=== PATIENT | male | born 1935 ===

== ENCOUNTER 2017-10-05 15:56 | Inpatient (IN) | payer MEDICARE ==
[~2017-10-05] VITALS: Ht 170.2 cm; Wt 79.4 kg
[2017-10-05 16:15] VITALS: BP 148/82
[2017-10-05] MEDS ORDERED: ONDA4SOL2 PO (16:58)
[2017-10-05] MEDS ORDERED: ENOX40DI SQ (16:58)
[2017-10-05] MEDS ORDERED: ACET-2154 PO (16:58)
[2017-10-05] MEDS ORDERED: ATOR80TA PO (16:58)
[2017-10-05] MEDS ORDERED: CLOP75TA15 PO (16:58)
[2017-10-05] MEDS ORDERED: DEXTROSE 50% 50 ML DISP.SYRIN IV PRN (17:00)
[2017-10-05] MEDS ORDERED: FINA5TAB11 PO (17:27)
[2017-10-05] MEDS ORDERED: MULT-24 (17:27)
[2017-10-05] MEDS ORDERED: MEMA10TA PO (17:27)
[2017-10-05] MEDS ORDERED: SITA1TAB6 PO (17:27)
[2017-10-05] MEDS ORDERED: ONDANSETRON HCL 4 MG/5 ML UDC ORAL SOL PO PRN (18:00)
[2017-10-05] MEDS ORDERED: ONDANSETRON HCL 4 MG TABLET PO PRN (18:00)
[2017-10-05] MEDS ORDERED: ACETAMINOPHEN 325 MG TABLET PO PRN (18:00)
--- NOTE | 2017-10-05 18:13 | NUR ---
pt admitted from [facility]. pt admitted at 1530. pt bp elevated. pt tolerates room air. pt afebrile. all belongings signed. NIH stroke scale done. pt all pertinent assessments done. pt is alert and oriented. pt shows signs of dementia. pt has history of right side weaknes hyperlipidemia TIA and lactic acidosis. pt family will bring in home meds tomorrow. will continue to monitor. Addendum: 10/05/17 at 1825 by LAMONTE LEDESMA RN no new injuries noted. pt vitals RR 20 Temp 98.2 )2 98% room air Bp 148/82 no pain noted. pt seen by md galeas and dr german.
[2017-10-05 20:00] VITALS: BP 142/71
--- NOTE | 2017-10-05 20:30 | NUR ---
Received pt on bed alert and awake. Family member at bedside during this time. No acute distress noted. No complaints of pain or discomfort. Breathing even and unlabored with normal respirations. All due meds given as ordered and well tolerated. Ambulates to the bathroom with walker and standby assistance. Encouraged to verbalize needs and concerns. Call light within reach. All needs attended. Will continue to monitor.
[2017-10-05] MEDS: MEMANTINE HCL 10 MG TABLET PO SCH (20:49)
[2017-10-05] MEDS: ATORVASTATIN 40 MG TABLET PO SCH (20:49)
--- NOTE | 2017-10-06 05:23 | NUR ---
Pt seen on rounding, slept comfortably throughout the night. No acute distress noted. No complaints of pain or discomfort. Assisted to the bathroom as needed. Call light within reach. All needs attended.
[2017-10-06 07:25] LABS: BASOPHILS % (AUTO) 0.6 % (0.0-2.0); EOSINOPHILS # (AUTO) 0.3 K/uL (0.0-0.7); EOSINOPHILS % (AUTO) 4.7 % (0.0-7.0); HEMATOCRIT 47.8 % (36.7-47.1); HEMOGLOBIN 16.6 g/dL (12.5-16.3); LYMPHOCYTES # (AUTO) 1.6 K/uL (20.0-40.0); LYMPHOCYTES % (AUTO) 25.2 % (20.5-51.5); MEAN CORPUSCULAR HEMOGLOBIN 32.7 uug (23.8-33.4); MEAN CORPUSCULAR HGB CONC 35 g/dL (32.5-36.3); MEAN CORPUSCULAR VOLUME 94.4 fL (73.0-96.2); MONOCYTES # (AUTO) 0.7 K/uL (2.0-10.0); MONOCYTES % (AUTO) 11.2 % (0.0-11.0); NEUTROPHILS # (AUTO) 3.6 K/uL (1.8-8.9); NEUTROPHILS % (AUTO) 58.3 % (38.5-71.5); PLATELET COUNT (AUTO) 231 K/uL (152-348); RED BLOOD CELL COUNT(AUTO) 5.07 MIL/uL (4.06-5.63); WHITE BLOOD COUNT (AUTO) 6.2 K/uL (3.6-10.2)
[2017-10-06 07:39] LABS: CARBON DIOXIDE 29 mmol/L (21-32); CHLORIDE 106 mmol/L (98-107); CHOLESTEROL 145 mg/dL (<200); CREATININE 1.1 mg/dL (0.6-1.3); GLUCOSE 101 mg/dL (74-106); HDL CHOLESTEROL 41 mg/dL (40-60); MAGNESIUM 2.1 mg/dL (1.8-2.4); PHOSPHOROUS 3.6 mg/dL (2.5-4.9); POTASSIUM 3.7 mmol/L (3.5-5.1); TRIGLYCERIDES 73 MG/DL (30-150); UREA NITROGEN, BLOOD 15 mg/dL (7-18)
[2017-10-06 07:55] VITALS: BP 133/64
[2017-10-06] MEDS: CLOPIDOGREL 75 MG TABLET PO SCH (09:39)
[2017-10-06] MEDS: MULTIVITAMINS,THERAPEUTIC TABLET PO SCH (09:39)
[2017-10-06] MEDS: FINASTERIDE 5 MG TABLET PO SCH (09:44)
[2017-10-06] MEDS: MEMANTINE HCL 10 MG TABLET PO SCH ×2 (09:44→21:20)
[2017-10-06] MEDS: ENOXAPARIN SODIUM 30 MG/0.3 ML DISP.SYRIN SUBCUT SCH (10:18)
--- NOTE | 2017-10-06 11:03 | NUR ---
SBAR report received near bedside, board updated. Pt awake, alert, oriented. Pt assessed, no c/o pain, no SOB, and no discomfort to be noted. Pt compliant with all routine morning medication administration, and reports tolerating well active participation with OT earlier this morning. All safety and comfort measures met. Personal items and call light within reach. Will continue to monitor and follow up about supply of at home medication.
--- NOTE | 2017-10-06 11:32 | NUR ---
Admitting RN contacted for Accu-check confirmation of AC HS, eMAR corrected to reflect this, blood sugars checked prior to lunch, 155 mg/dL result, 2 units of insulin administered per sliding scale protocol.
[2017-10-06] MEDS: INSULIN REGULAR, HUMAN 300 UNIT/3 ML VIAL SQ PRN ×3 (11:54→21:31)
--- NOTE | 2017-10-06 12:36 | NUR ---
Life partner, Latasha visiting at bedside for lunch and provided at home medication requested. Medication brought to pharmacy.
[2017-10-06] MEDS: BLOOD SUGAR DIAGNOSTIC 1 EACH STRIP VI SCH ×3 (13:00→21:21)
[2017-10-06] MEDS ORDERED: BLOOD SUGAR DIAGNOSTIC 1 EACH STRIP VI SCH (16:30)
[2017-10-06] MEDS: JANUMET PO SCH (17:01)
--- NOTE | 2017-10-06 19:03 | NUR ---
Pt sitting comfortably, semi-fowlers position in bed. No c/o pain, or discomfort, BS prior to dinner 153, 2 units insulin administered per sliding scale. Call light placed within reach. All needs addressed. Will endorse to oncoming overnight cashier.
--- NOTE | 2017-10-06 20:45 | NUR ---
Received patient in bed, on semi us's position, awake and verbally responsive. Patient watching TV, breathing is even and nonlabored. Vital signs taken, BP 104/62, T 97.7, P 98, R 18, O2 sat on 99% RA. Patient expressed his excitement to go home tomorrow. Per patient " I can't wait to go back home." Safety measures provided. Call light in reach. Will monitor the pt.
[2017-10-06] MEDS: ATORVASTATIN 40 MG TABLET PO SCH (21:20)
[2017-10-06 21:48] VITALS: BP 104/62
--- NOTE | 2017-10-07 06:20 | NUR ---
Pt. slept throughout the shift. No signs of any acute respi. distress. No s/s of stroke, vital signs stable. All due meds. given. Safety measures provided. All needs attended to. Call light in reach. Will endorse to AM shift nurse.
[2017-10-07] MEDS: BLOOD SUGAR DIAGNOSTIC 1 EACH STRIP VI SCH ×4 (06:54→21:03)
--- NOTE | 2017-10-07 06:59 | NUR ---
accu check done, blood sugar 97mg/dL. No action needed. will endorse to AM shift.
[2017-10-07] MEDS: JANUMET PO SCH ×2 (08:00→17:25)
[2017-10-07] MEDS: MULTIVITAMINS,THERAPEUTIC TABLET PO SCH (08:42)
[2017-10-07] MEDS: MEMANTINE HCL 10 MG TABLET PO SCH ×2 (08:42→20:55)
[2017-10-07] MEDS: CLOPIDOGREL 75 MG TABLET PO SCH (08:42)
[2017-10-07] MEDS: FINASTERIDE 5 MG TABLET PO SCH (08:42)
[2017-10-07] MEDS: ENOXAPARIN SODIUM 30 MG/0.3 ML DISP.SYRIN SUBCUT SCH (08:44)
[2017-10-07] MEDS: INSULIN REGULAR, HUMAN 300 UNIT/3 ML VIAL SQ PRN (14:48)
--- NOTE | 2017-10-07 19:30 | NUR ---
Patient in bathroom at this time. Alert and verbally responsive. Able to make needs known. Denies any pain and discomfort at this time. No acute distress. No SOB. Kept clean and dry. Ambulates to the bathroom. Verbalized to call for help when needed. Verbalizes understanding. All needs attended to promptly. Call light within reach. Will continue to monitor.
[2017-10-07 20:00] VITALS: BP 132/81
[2017-10-07] MEDS: ATORVASTATIN 40 MG TABLET PO SCH (20:55)
[2017-10-08] MEDS: BLOOD SUGAR DIAGNOSTIC 1 EACH STRIP VI SCH ×4 (06:43→20:46)
--- NOTE | 2017-10-08 07:04 | NUR ---
Patient slept comfortably throughout tonight. No c/o pain and discomfort. No acute distress. No SOB. Assisted to the bathroom. Patient noted to be slightly confused due to hx of dementia. Patient mentioned multiple times that he wanted to go home today. Patient also verbalized to me that he had a doctors appointment today and that he got a room here so he can go up see the dr. Re-oriented patient and explained to him the reason why he was here. Accucheck taken this AM with BS of 103. No insulin needed. Endorsed to AM shift. All needs attended to promptly. Call light within reach. Will continue to monitor.
--- NOTE | 2017-10-08 07:30 | NUR ---
Patient is in bed, awake and alert, verbally responsive not in distress and not in pain. Vitals are stable, kept comfortable, no signs and symptoms of hypoglycemia or hyperglycemia. Patient provided limited assistance with bed mobility, toileting and transfers. Needs attended promptly, patient is voiding independently using his urinal within normal limits.
[2017-10-08] MEDS: ENOXAPARIN SODIUM 30 MG/0.3 ML DISP.SYRIN SUBCUT SCH (09:39)
[2017-10-08] MEDS: JANUMET PO SCH ×2 (09:40→17:07)
[2017-10-08] MEDS: CLOPIDOGREL 75 MG TABLET PO SCH (09:42)
[2017-10-08] MEDS: MULTIVITAMINS,THERAPEUTIC TABLET PO SCH (09:42)
[2017-10-08] MEDS: FINASTERIDE 5 MG TABLET PO SCH (09:42)
[2017-10-08] MEDS: MEMANTINE HCL 10 MG TABLET PO SCH ×2 (09:43→20:47)
[2017-10-08 09:44] VITALS: BP 122/82
[2017-10-08] MEDS: INSULIN REGULAR, HUMAN 300 UNIT/3 ML VIAL SQ PRN ×3 (12:02→20:50)
--- NOTE | 2017-10-08 18:00 | NUR ---
Patient up in a chair, awake and alert, verbally responsive, denies pain, and not in acute distress. Accucheck done, no signs and symptoms of hypoglycemia or hyperglycemia at this time, no signs and symptoms of bleeding noted, handled gently. Needs attended promptly. All due medications given kept comforable clean and dry. Call light in easy reach
--- NOTE | 2017-10-08 19:30 | NUR ---
Received patient sitting up in wheelchair. at bedside. Patient alert and verbally responsive. Able to make needs known. Denies any pain and discomfort at this time. No acute distress. No SOB. Kept clean and dry. All needs attended to promptly. Call light within reach. Will continue to monitor.
[2017-10-08 20:00] VITALS: BP 109/74
[2017-10-08] MEDS: ATORVASTATIN 40 MG TABLET PO SCH (20:47)
[2017-10-09] MEDS: BLOOD SUGAR DIAGNOSTIC 1 EACH STRIP VI SCH ×4 (06:35→20:26)
--- NOTE | 2017-10-09 06:57 | NUR ---
Patient slept comfortably throughout the night. No c/o pain and discomfort. No acute distress. No SOB. Kept clean and dry. BS this am is 113. No coverage needed. Will endorse to AM shift. All needs attended to promptly. Call light within reach. Will continue to monitor.
[2017-10-09] MEDS: CLOPIDOGREL 75 MG TABLET PO SCH (09:22)
[2017-10-09] MEDS: MULTIVITAMINS,THERAPEUTIC TABLET PO SCH (09:22)
[2017-10-09] MEDS: JANUMET PO SCH ×2 (09:22→18:15)
[2017-10-09] MEDS: FINASTERIDE 5 MG TABLET PO SCH (09:23)
[2017-10-09] MEDS: MEMANTINE HCL 10 MG TABLET PO SCH ×2 (09:23→20:24)
[2017-10-09] MEDS: ENOXAPARIN SODIUM 30 MG/0.3 ML DISP.SYRIN SUBCUT SCH (09:36)
--- NOTE | 2017-10-09 10:15 | NUR ---
SBAR report received near bedside, board update. Pt awake, alert, and oriented x3, unable to describe event leading to hospitalization r/t Dementia. Pt assessed, no acute distress, pain or SOB. Helped with breakfast and to the bathroom, voiding x1. Pt compliant with all routine morning medication administration taking all po medications at once. V/S taken, 121/82, 90, 98.4 temp., 97% on RA, and 15 RR. All comfort and safety measures met. Will continue to monitor. Call light within reach.
[2017-10-09 10:25] VITALS: BP 121/82
[2017-10-09] MEDS: INSULIN REGULAR, HUMAN 300 UNIT/3 ML VIAL SQ PRN (12:14)
--- NOTE | 2017-10-09 18:23 | NUR ---
Pt reports having a poor appetite even towards snacks at this time. BS 130 prior to dinner, no coverage needed. Pt evaluated by OT for first shower, per family request following therapy. All safety and comfort measures met. Personal belongings and call light placed within reach. Will continue to monitor and endorse to oncoming second shift supervisor.
[2017-10-09 19:30] VITALS: BP 129/71
--- NOTE | 2017-10-09 19:30 | NUR ---
RECEIVED PATIENT FROM DAY SHIFT NURSE. SHIFT REPORT AT BEDSIDE. PATIENT SITTING COMFORTABLY IN BED AT START OF SHIFT WITH NO SIGNS OF PAIN, SOB, OR ACUTE DISTRESS. PT IS A/O X4 & ABLE TO MAKE NEEDS KNOWN. PERTINENT ASSESSMENT COMPLETED. CALL LIGHT PLACED WITHIN REACH OF PT. WILL CONTINUE TO MONITOR PT THROUGH SHIFT.
[2017-10-09] MEDS: ATORVASTATIN 40 MG TABLET PO SCH (20:24)
--- NOTE | 2017-10-10 05:38 | NUR ---
patient slept well through the shift. no signs of pain, sob, or acute distress. vital signs stable through shift. able to make needs known. all meds administered as ordered per md. safety measures implemented. bed in low position x2 side rails up. call light placed within reach of patient. encouraged patient to use call light when needing to use bathroom or ambulating. will endorse to day shift nurse.
[2017-10-10] MEDS: BLOOD SUGAR DIAGNOSTIC 1 EACH STRIP VI SCH ×4 (06:30→20:33)
--- NOTE | 2017-10-10 07:40 | NUR ---
Received patient asleep, non-labored breathing. Call light within reach.
--- NOTE | 2017-10-10 08:42 | NUR ---
I agree Addendum: 10/10/17 at 0842 by YRN SALCIDO OT Amended: Links added.
--- NOTE | 2017-10-10 08:44 | NUR ---
I agree Addendum: 10/10/17 at 0845 by YRN SALCIDO OT Amended: Links added.
--- NOTE | 2017-10-10 08:45 | NUR ---
I agree Addendum: 10/10/17 at 0846 by YRN SALCIDO OT Amended: Links added.
--- NOTE | 2017-10-10 09:00 | NUR ---
Morning care done, encouraged patient to eat more but said he was not hungry. Was able to finish cereals. Up with occupational therapy. Tolerating therapy well.
[2017-10-10] MEDS: JANUMET PO SCH ×2 (09:05→17:13)
[2017-10-10] MEDS: MULTIVITAMINS,THERAPEUTIC TABLET PO SCH (09:06)
[2017-10-10] MEDS: CLOPIDOGREL 75 MG TABLET PO SCH (09:06)
[2017-10-10] MEDS: MEMANTINE HCL 10 MG TABLET PO SCH ×2 (09:06→20:32)
[2017-10-10] MEDS: FINASTERIDE 5 MG TABLET PO SCH (09:06)
[2017-10-10] MEDS: ENOXAPARIN SODIUM 30 MG/0.3 ML DISP.SYRIN SUBCUT SCH (09:13)
[2017-10-10 11:46] VITALS: BP 104/59
--- NOTE | 2017-10-10 12:00 | NUR ---
WITH FAMILY AT BEDSIDE. NO COMPLAINTS OF DISCOMFORT. CALL LIGHT WITHIN REACH. ATTENDED TO NEEDS PROMPTLY.
[2017-10-10] MEDS: INSULIN REGULAR, HUMAN 300 UNIT/3 ML VIAL SQ PRN (12:06)
--- NOTE | 2017-10-10 14:15 | NUR ---
INTERDISCIPLINARY CONFERENCE MEETING
[2017-10-10 19:30] VITALS: BP 125/73
--- NOTE | 2017-10-10 19:30 | NUR ---
received patient from day shift nurse. shift report at bedside. pt a/o however forgetful. sitting on edge of bed comfortably at start of shift with no signs of pain, sob, or acute distress. vital signs stable at start of shift. pertinent assessment completed. bed in low position x2 side rails up. call light placed within reach of pt. encouraged pt to use call light if needing assistance. will continue to monitor pt through shift.
[2017-10-10] MEDS: ATORVASTATIN 40 MG TABLET PO SCH (20:33)
--- NOTE | 2017-10-11 05:38 | NUR ---
patient slept well through the shift. no signs of pain, sob, or acute distress. all needs attended to. all meds administered as ordered per md. vital signs stable through shift. safety measures implemented. call light placed within reach of patient. encouraged pt to use call light when needing to use the restroom. bed in low position x2 side rails up. will endorse to day shift nurse.
[2017-10-11] MEDS: BLOOD SUGAR DIAGNOSTIC 1 EACH STRIP VI SCH ×4 (06:35→20:52)
[2017-10-11] MEDS: JANUMET PO SCH ×2 (08:34→17:15)
[2017-10-11] MEDS: CLOPIDOGREL 75 MG TABLET PO SCH (08:35)
[2017-10-11] MEDS: MULTIVITAMINS,THERAPEUTIC TABLET PO SCH (08:35)
[2017-10-11] MEDS: MEMANTINE HCL 10 MG TABLET PO SCH ×2 (08:35→20:51)
[2017-10-11] MEDS: FINASTERIDE 5 MG TABLET PO SCH (08:35)
[2017-10-11] MEDS: ENOXAPARIN SODIUM 30 MG/0.3 ML DISP.SYRIN SUBCUT SCH (08:41)
[2017-10-11 09:39] VITALS: BP 125/77
--- NOTE | 2017-10-11 10:37 | NUR ---
SBAR report received near bedside, board updated. Pt assessed, no c/o pain, no SOB or any acute distress noted. Pt compliant with all routine morning medication administration. Pt reminded to utilize call light for supervision in ambulating to bathroom. Pt eduction provided on Stroke/CVA prevention. Call light and personal items within reach. Will continue to monitor.
[2017-10-11] MEDS: INSULIN REGULAR, HUMAN 300 UNIT/3 ML VIAL SQ PRN (17:18)
--- NOTE | 2017-10-11 18:38 | NUR ---
Pt resting comfortably in semi-fowlers position in bed, daughter, son, and spouse visiting at bedside brought Pt dinner. Blood sugar checked prior to eating 150, 2 units of insulin administered per MD orders and sliding scale. Pt v/s have remained stable throughout this shift with no notable changes to plan of care. Pt seen by MD, no new orders received. Call light and personal items within reach. All safety and comfort measures met. Will continue to monitor and endorse to on coming night supervisor.
[2017-10-11 19:30] VITALS: BP 114/76
--- NOTE | 2017-10-11 20:10 | NUR ---
Pt in bed and watching TV. AAO x3. Vital signs stable. Pt stated willingness to go home. No acute distress noted. No c/o pain or discomfort. Safety measures maintained. Call light and personal belongings maintained. Will continue to monitor.
[2017-10-11] MEDS: ATORVASTATIN 40 MG TABLET PO SCH (20:51)
--- NOTE | 2017-10-12 05:30 | NUR ---
Patient slept comfortably t/o the night. Vital signs stable. Meds given per MD's order. Able to make needs known. All needs attended to promptly. Will endorse to day shift RN. Continue to monitor.
[2017-10-12] MEDS: BLOOD SUGAR DIAGNOSTIC 1 EACH STRIP VI SCH ×4 (06:46→20:39)
[2017-10-12] MEDS: INSULIN REGULAR, HUMAN 300 UNIT/3 ML VIAL SQ PRN ×4 (07:33→20:40)
[2017-10-12] MEDS: MULTIVITAMINS,THERAPEUTIC TABLET PO SCH (08:51)
[2017-10-12] MEDS: FINASTERIDE 5 MG TABLET PO SCH (08:51)
[2017-10-12] MEDS: MEMANTINE HCL 10 MG TABLET PO SCH ×2 (08:51→20:38)
[2017-10-12] MEDS: CLOPIDOGREL 75 MG TABLET PO SCH (08:51)
[2017-10-12] MEDS: JANUMET PO SCH ×2 (08:52→17:01)
[2017-10-12] MEDS: ENOXAPARIN SODIUM 30 MG/0.3 ML DISP.SYRIN SUBCUT SCH (08:53)
[2017-10-12 09:03] VITALS: BP 110/81
--- NOTE | 2017-10-12 10:00 | NUR ---
pt seen on rounding. pt continues to have vitals stable. pt goes on the restroom with walker. no loc changes. no nih changes. pt given meds whole. pt does no show signs of aspiration. no pain noted. will continue to monitor.
--- NOTE | 2017-10-12 19:25 | NUR ---
Pt resting comfortably in bed and watching TV. AAO x3 but can be forgetful for short-term memory. Family at bedside. Family stated that she talked to the MD already about pt's discharge on the instead of the . No acute distress noted. No c/o pain or discomfort. Safety measures maintained. Call light and personal belongings within reach. Will continue to monitor.
[2017-10-12 20:00] VITALS: BP 116/77
[2017-10-12] MEDS: ATORVASTATIN 40 MG TABLET PO SCH (20:39)
--- NOTE | 2017-10-13 05:09 | NUR ---
Patient slept comfortably t/o the night. Vital signs stable. Meds and insulin coverage given per MD's order. All needs attended to promptly. Will endorse to day shift RN. Continue to monitor.
[2017-10-13] MEDS: BLOOD SUGAR DIAGNOSTIC 1 EACH STRIP VI SCH ×4 (06:40→21:01)
[2017-10-13] MEDS: INSULIN REGULAR, HUMAN 300 UNIT/3 ML VIAL SQ PRN ×4 (07:33→21:05)
[2017-10-13] MEDS: JANUMET PO SCH ×2 (08:00→17:06)
[2017-10-13 08:43] VITALS: BP 114/75
[2017-10-13] MEDS: CLOPIDOGREL 75 MG TABLET PO SCH (09:36)
[2017-10-13] MEDS: MULTIVITAMINS,THERAPEUTIC TABLET PO SCH (09:36)
[2017-10-13] MEDS: MEMANTINE HCL 10 MG TABLET PO SCH ×2 (09:36→21:01)
[2017-10-13] MEDS: FINASTERIDE 5 MG TABLET PO SCH (09:36)
[2017-10-13] MEDS: ENOXAPARIN SODIUM 30 MG/0.3 ML DISP.SYRIN SUBCUT SCH (09:38)
--- NOTE | 2017-10-13 10:00 | NUR ---
pt seen on rounding. pt continues to sleep interminently. vitals stable. no new changes on NIH. pt continues to be alert and oriented but forgetful. pt continues to be standby assist on transfers with help of walker. no new injuries noted. pt took meds whole. will continue to monitor.
--- NOTE | 2017-10-13 19:03 | NUR ---
pt stable throuhgout the day. pt slept most of the day. pt continues to show signs of dementia such as forgetfulness. standby assist on the bathroom. no constipation noted. maintained LOC and NIH baselines. will endorse to overnight houseperson nurse.,
[2017-10-13 19:30] VITALS: BP 127/76
--- NOTE | 2017-10-13 19:30 | NUR ---
Received patient from day shift nurse. Shift report at bedside. Patient stable at start of shift, sitting comfortably in bed with no signs of pain, sob, or acute distress. pertinent assessment completed. vital signs stable at start of shift. bed in low position x2 side rails up. call light placed within reach of pt. Encouraged pt to use call light when needing assistance. will continue to monitor pt through shift.
[2017-10-13] MEDS: ATORVASTATIN 40 MG TABLET PO SCH (21:01)
--- NOTE | 2017-10-14 06:03 | NUR ---
Patient slept well through the night. no signs of pain, sob, or acute distress during the shift. vital signs stable. able to make needs known. all medications administered as ordered per md. safety measures implemented. call light placed within reach of pt. encouraged pt to use call light if needing assistance. will endorse to day shift nurse.
[2017-10-14] MEDS: BLOOD SUGAR DIAGNOSTIC 1 EACH STRIP VI SCH ×2 (06:32→12:19)
[2017-10-14] MEDS: MULTIVITAMINS,THERAPEUTIC TABLET PO SCH (09:07)
[2017-10-14] MEDS: FINASTERIDE 5 MG TABLET PO SCH (09:07)
[2017-10-14] MEDS: CLOPIDOGREL 75 MG TABLET PO SCH (09:07)
[2017-10-14] MEDS: JANUMET PO SCH (09:07)
[2017-10-14] MEDS: MEMANTINE HCL 10 MG TABLET PO SCH (09:07)
[2017-10-14] MEDS: ENOXAPARIN SODIUM 30 MG/0.3 ML DISP.SYRIN SUBCUT SCH (09:11)
[2017-10-14] MEDS: INSULIN REGULAR, HUMAN 300 UNIT/3 ML VIAL SQ PRN (12:19)
--- NOTE | 2017-10-14 16:32 | NUR ---
D/C NOTE D/C TO HOME WITH HOME HEALTH. TAKING HIM HOME IN CAR. NO C/O PAIN VSS MEDS FAXED TO [facility]ARM[facility] OF PT CHOICE. REFUSED COPY OF TMS. D/C INSTRUCTIONS GIVEN. ORDER ON CHART. WHEELED TO CAR BY RN. INSTRUCTIONS GIVEN TO VERBAILZE UNDERSTANDING. SKIN INTACT NO PICS TAKEN
== END 2017-10-14 14:30 | disposition home health service (06) | DRG 57 ==
PROVIDERS: ADMIT Internal Medicine; ATTEND Physical Medicine & Rehabilitation Pain Medicine
DX: I69.351 Hemiplegia and hemiparesis following cerebral infarction affecting right dominant side (principal); E11.9 Type 2 diabetes mellitus without complications; F03.90 Unspecified dementia, unspecified severity, without behavioral disturbance, psychotic disturbance, mood disturbance, and anxiety; N40.0 Benign prostatic hyperplasia without lower urinary tract symptoms; Z91.81 History of falling; E78.5 Hyperlipidemia, unspecified; R53.1 Weakness
CPT/HCPCS: 36415; 70030-TC; 83735; 84100; 85025; 92507; 92523; 97110; 97112; 97116; 97165; 97530; 97535; J1650; J1815; Q0162